=== PATIENT | male | born 1940 | race American Indian/Alaskan Native ===

== ENCOUNTER 2021-11-26 10:19 | Day surgery (SDC) | payer OTHER ==
[2021-11-21 12:42] LABS: Hematocrit 34.1 % (35.5-45.6); Mean Corpuscular HGB Conc 35 % (32-34); Mean Corpuscular Volume 85 fl (84-94); Platelet Count 206 K/mm3 (140-440); Red Blood Count 4.03 M/mm3 (3.65-5.03); Red Cell Distribution Width 13.4 % (13.2-15.2)
[2021-11-21 12:57] LABS: Alanine Aminotransferase 33 units/L (7-56); Albumin 4.5 g/dL (3.9-5); BUN/Creatinine Ratio 20; Blood Urea Nitrogen 18 mg/dL (9-20); Calcium 9.5 mg/dL (8.4-10.2); Hemolysis Index 2
--- NOTE | 2021-11-21 13:23 | Anesthesia Consultation ---
Anesthesia Consult and Med Hx Date of service: 11/26/21 - Airway Anesthetic Teeth Evaluation: Good (Crooked teeth) ROM Head & Neck: Adequate Mental/Hyoid Distance: Adequate Mallampati Class: Class II Intubation Access Assessment: Good - Pre-Operative Health Status ASA Pre-Surgery Classification: ASA2 Proposed Anesthetic Plan: General - Pulmonary Hx Smoking: No Hx Respiratory Symptoms: No (+2FS) Hx Sleep Apnea: No - Cardiovascular System Hx Hypertension: Yes Hx Heart Attack/AMI: No (Had NST and ECHO [id number]) - Central Nervous System Hx Psychiatric Problems: No - Gastrointestinal Hx Gastroesophageal Reflux Disease: No - Hematic Hx Anemia: Yes Hx Sickle Cell Disease: No - Other Systems Hx Alcohol Use: Yes (Occas) Hx Cancer: Yes (Prostate)
[~2021-11-26 10:19] MED LIST: ACETAMINOPHEN 325 MG TAB PO NR; LACTATED RINGERS 1,000 ML IV SCH; MAGNESIUM OXIDE 400 MG TAB PO NR
[2021-11-26] MEDS ORDERED: HYDROcodone/ACETAMINOPHEN 5-325 MG TAB PO PRN (11:09)
--- NOTE | 2021-11-26 11:09 | Anesthesia Day of Surgery ---
Anesthesia Day of Surgery - Day of Surgery Patient Examined: Yes Patient H&P Reviewed: Yes Patient is NPO: Yes
[2021-11-26] MEDS ORDERED: ceFAZolin/Water 2 GM/20 ML 2 GM/20 ML SYRINGE IV ONE (11:44)
[2021-11-26] MEDS ORDERED: ceFAZolin/STERILE WATER 2 GM/20 ML SYRINGE IV SCH (12:00)
[2021-11-26] MEDS ORDERED: MIDAZOLAM 2 MG/2 ML INJ ONE (12:56)
[2021-11-26] MEDS ORDERED: SODIUM CHLORIDE 0.9% 1000 ML 1,000 ML ONE (12:58)
[2021-11-26] MEDS ORDERED: LIDOCAINE MPF (2%) 20 MG/1 ML VIAL 5 ML ONE (13:28)
[2021-11-26] MEDS ORDERED: fentaNYL 100 MCG/2 ML INJ ONE (13:28)
[2021-11-26] MEDS ORDERED: propofoL 200 MG/20 ML VIAL IV ONE ×2 (13:28→13:50)
--- NOTE | 2021-11-26 14:18 | Post Operative Note ---
Date of procedure: 11/26/21 Pre-op diagnosis: cap Post-op diagnosis: same Findings: small gland Procedure: cysto cryoablation prostate Anesthesia: GETA Estimated blood loss: minimal Pathology: none Condition: stable Disposition: PACU
--- NOTE | 2021-11-26 14:20 | Discharge Summary ---
Short Stay Discharge Plan Activity: other (no straining ) Weight Bearing Status: Full Weight Bearing Diet: low fat, low cholesterol, low salt Special Instructions: other Durable Medical Equipment Needed Upon Discharge: other (home with peña ) Follow up with: PRIMARY CARE, [Primary Care Provider] - 7 Days
[2021-11-26] MEDS ORDERED: dexAMETHasone 20 MG/5 ML VIAL ONE (14:30)
[2021-11-26] MEDS ORDERED: PHENYLEPHRINE/NS 1,000 MCG/10 ML SYRINGE (OR USE) IV ONE (14:30)
[2021-11-26] MEDS ORDERED: ONDANSETRON 4 MG/2 ML INJ ONE (14:30)
[2021-11-26] MEDS ORDERED: SODIUM CHLORIDE 0.9% 1000 ML IV SOLN IR ONE (14:34)
[2021-11-26] MEDS ORDERED: WATER FOR IRRIG STERILE 2000 ML IR ONE (14:34)
[2021-11-26] MEDS ORDERED: LACTATED RINGERS 1,000 ML ONE (15:58)
[2021-11-26] MEDS: HYDROmorphone 0.5 MG/0.5 ML INJ IV PRN ×4 (16:35→17:05)
--- NOTE | 2021-11-26 17:02 | Operative Report ---
DATE OF SURGERY: 11/26/2021 PREOPERATIVE DIAGNOSIS: Prostate cancer. POSTOPERATIVE DIAGNOSIS: Prostate cancer. PROCEDURES: Cryosurgical ablation of prostate. SURGEON: Dr. Bill Joe. ANESTHESIA: General. FINDINGS: This is a gentleman with small prostate, prostate cancer, right lobe. Now presents for cryoablation. DESCRIPTION OF PROCEDURE: The patient was brought to the operating room and placed on the operating table. Following induction of anesthesia, placed in lithotomy position, prepped and draped in usual sterile fashion. Daniels catheter showed a little narrowing at the mid penile urethra, which was easily bypassed and a 20 Councill was easily placed. There was no trauma. At this point, the ultrasound was placed. Excellent visualization was achieved, the gland was approximately 20 grams. It had shrunk down from the hormones. Probes were placed first 1 and 2 and then the temperature probes. The external sphincter and Denonvilliers was placed in excellent position little more to the right where we would be doing a little more freezing because of this disease process, then probes 5 and 6 and then 3 and 4. The patient tolerated the procedure well. No significant complication. After we measured everything, the probes were placed at approximately 2.5 cm in length. Freezing was accomplished from 1 and 2 down to 3 and 4 and 5 and 6. We had excellent ice, which eventually connected in the midline. The patient tolerated the procedure well. Denonvilliers stayed around maximum low temperature of about 15. We were careful to avoid the rectum. Excellent freeze and excellent ice. A thaw was carried out. A second freeze was accomplished after we rechecked the probes. The patient tolerated the procedure well and brought to recovery room. Daniels catheter was placed in stable condition and will be discharged later today with the catheter for approximately 4-5 days. TID: [id number] RECEIPT: [id number] TERRELL/LAKISHA/HAROON
[2021-11-26 17:38] VITALS: BP 142/77
== END 2021-11-26 17:35 | disposition home or self-care (01) ==
LOC: OR 10:19
PROVIDERS: ATTEND Urology
DX: C61 Malignant neoplasm of prostate (principal); I10 Essential (primary) hypertension; E78.00 Pure hypercholesterolemia, unspecified; D64.9 Anemia, unspecified; Z72.89 Other problems related to lifestyle; Z20.822 Contact with and (suspected) exposure to COVID-19; Z79.899 Other long term (current) drug therapy; Z98.890 Other specified postprocedural states
CPT/HCPCS: 36415; 55873; 80053; 85027; C1726; C1769; C2618; J0690; J1100; J1170; J2250; J2370; J2405; J2704; J3010; J7030; J7120; U0003